=== PATIENT | male | born 1980 | race African-American/Black ===

== ENCOUNTER 2020-02-21 19:21 | Emergency (ER) | payer SELFPAY ==
[~2020-02-21] VITALS: Ht 180.3 cm; Wt 88.5 kg
--- NOTE | 2020-02-21 19:55 | NUR ---
Jenaro gay in [facility] - 02/21/20 at [address] Lopes examining patient.
--- NOTE | 2020-02-21 19:57 | NUR ---
Dr. Lopes examining patient.
--- NOTE | 2020-02-21 20:02 | NUR ---
39 y/o MALE PRESENTED TO ED C/O RECENT DRUG INGESTION. PT STATES HE TOOK RACHEL WATER, METH AND DRANK ALCOHOL TODAY. PT STATES HE WAS NOT TRYING TO HURT HIMSELF , THAT HE WAS JUST TRYING TO STAY UP. PT STATES HE TAKES THESE DRUGS REGULARLY. PT HAS TRIED TO DETOX BEFORE AND HAS STAYED AT [facility] AT ONE TIME. PT DOES STATE THAT HE HAS TRIED TO HURT HIMSELF BEFORE BUT DOES NOT HAVE ANY SI THOUGHTS AT THIS TIME. PT ABLE TO FOLLOW COMMANDS, A/O X 4 . PT HAS MUMBLING SPEECH. PERRLA. RR EVEN AND UNLABORED. PT DENIES FEVER, BODY ACHES, CHILLS AND COUGH. PT CONNECTED TO [employer]UTATOR [employer]ESSER, PULSE OX AND BP CUFF. PT PLACED IN BED, LOCKED AND IN LOWEST POSITION, HOB ELEVATED, SIDE RAIL X2 FOR PT STAFETY. PMH: DENIES NKA
[2020-02-21 20:05] VITALS: BP 141/81
--- NOTE | 2020-02-21 20:11 | NUR ---
PT PROVIDED W/ URINAL AT THIS TIME FOR ENCOURAGEMENT OF URINE SAMPLE.
--- NOTE | 2020-02-21 20:14 | NUR ---
LAB AT BEDSIDE.
--- NOTE | 2020-02-21 20:15 | NUR ---
PT STATES HE IS UNABLE TO PROVIDE URINE AT THIS TIME.
[2020-02-21 20:32] LABS: BASOPHILS % (AUTO) 0.3 % (0.0-2.0); EOSINOPHILS # (AUTO) 0.1 K/uL (0-0.4); EOSINOPHILS % (AUTO) 0.7 % (0.0-4.0); HEMATOCRIT 45.2 % (36-52); HEMOGLOBIN 15.5 g/dL (12.0-18.0); LYMPHOCYTES # (AUTO) 1.6 K/uL (2.0-11.5); LYMPHOCYTES % (AUTO) 21.4 % (20.5-51.1); MEAN CORPUSCULAR HEMOGLOBIN 29 pg (27-31); MEAN CORPUSCULAR HGB CONC 34 g/dL (33-37); MEAN CORPUSCULAR VOLUME 83.9 fL (80-94); MONOCYTES # (AUTO) 0.7 K/uL (0.8-1.0); MONOCYTES % (AUTO) 9.2 % (1.7-9.3); NEUTROPHILS # (AUTO) 5.2 K/uL (1.8-7.7); NEUTROPHILS % (AUTO) 68.4 % (42.2-75.2); PLATELET COUNT (AUTO) 224 K/uL (140-450); RED BLOOD CELL COUNT(AUTO) 5.39 MIL/uL (4.20-6.10); RED CELL DISTRIBUTION WIDTH 13.7 % (11.6-13.7); WHITE BLOOD COUNT (AUTO) 7.7 K/uL (4.8-10.8)
[2020-02-21 20:51] LABS: ALBUMIN 4.3 g/dL (3.4-5.0); ANION GAP 13.1 (8-16); ASPARTATE AMINOTRANSFERASE 19 U/L (15-37); CARBON DIOXIDE 28.4 mmol/L (21-32); CHLORIDE 98 mmol/L (98-107); CREATININE 1.4 mg/dL (0.6-1.3); GFR ARICAN-AMERICAN 73 mL/min (>90); GLUCOSE 87 mg/dL (74-106); POTASSIUM 3.5 mmol/L (3.5-5.1); SODIUM SERUM 136 mmol/L (136-145); TOTAL BILIRUBIN 0.7 mg/dL (0.0-1.0); UREA NITROGEN, BLOOD 6 mg/dL (7-18)
[2020-02-21 20:54] LABS: ACETAMINOPHEN < 0.5 ug/ml (10-30); SALICYLATE < 2.8 mg/dL (2.8-20.0)
[2020-02-21 21:07] LABS: APPEARANCE,URINE CLEAR (CLEAR); BILIRUBIN,URINE NEGATIVE (NEGATIVE); BLOOD, URINE NEGATIVE (NEGATIVE); COLOR,URINE YELLOW (YELLOW); LEUKOCYTE ESTERASE ,URINE NEGATIVE (NEGATIVE); NITRITE, URINE NEGATIVE (NEGATIVE); PH,URINE 7.5 (5.0-9.0); UGLUCOSE NEGATIVE (NEGATIVE)
[2020-02-21 21:15] LABS: BARBITURATE, URINE NEGATIVE ng/ml (NEG <=200); BENZODIAZEPINE, URINE NEGATIVE ng/mL (NEG <=200); CANNABINOID, URINE NEGATIVE ng/mL (NEG <=50); COCAINE, URINE NEGATIVE ng/mL (NEG <=300); OPIATE, URINE NEGATIVE ng/mL (NEG <=2000); PHENCYCLIDINE SCREEN,URINE NEGATIVE ng/mL (NEG <=25)
--- NOTE | 2020-02-21 21:30 | NUR ---
TELEPSYCH INITIATTED PER DR. Gary BASURTO
--- NOTE | 2020-02-21 21:49 | NUR ---
PT CURRENTLY IN BED PLAYING ON PHONE. VSS. NO ACUTE DISTRESS NOTED AT THIS TIME.
--- NOTE | 2020-02-21 22:02 | NUR ---
TELEPSYCH DOCTOR SPEAKING WITH PATIENT VIA REMOTE COMMUNICATION
--- NOTE | 2020-02-21 22:50 | NUR ---
PT LAYING IN BED, LOCKED AND IN LOWEST POSITION , HOB ELEVATED, SIDE RAIL X2 FOR PT SAFETY. PT PLAYING ON PHONE, CALM AND ACTING APPROPRIATELY AT THIS TIME. VSS. NO ACUTE DISTRESS NOTED.
[2020-02-21 23:30] VITALS: BP 124/90
--- NOTE | 2020-02-21 23:30 | NUR ---
Patient discharged with v/s stable. Written and verbal after care instructions given and explained. Patient alert, oriented and verbalized understanding of instructions. Ambulatory with steady gait. All questions addressed prior to discharge. ID band removed. Patient advised to follow up with PMD. Rx of ZYPREXA given. Patient educated on indication of medication including possible reaction and side effects. Opportunity to ask questions provided and answered.
== END 2020-02-21 23:30 | disposition home or self-care (01) ==
LOC: MED 19:21
DX: R45.851 Suicidal ideations (principal); F15.10 Other stimulant abuse, uncomplicated; F11.90 Opioid use, unspecified, uncomplicated
CPT/HCPCS: 36415; 80053; 80305; 81003; 85025; 99283; G0480; G0482